=== PATIENT | male | born 1990 | race Two or more races ===

== ENCOUNTER 2023-01-25 12:27 | Emergency (ER) | payer OTHER ==
[~2023-01-25] VITALS: Ht 172.7 cm; Wt 90.7 kg
[2023-01-25 14:10] VITALS: BP 131/78; TEMP 98.2; O2SAT 98
== END 2023-01-25 14:10 | disposition home or self-care (01) ==
LOC: ER 12:45
DX: S89.92XA Unspecified injury of left lower leg, initial encounter (principal); M25.462 Effusion, left knee; W22.8XXA Striking against or struck by other objects, initial encounter; Y93.89 Activity, other specified; Y92.89 Other specified places as the place of occurrence of the external cause; Y99.8 Other external cause status